=== PATIENT | female | born 1960 | race Caucasian/White ===

== ENCOUNTER → 2019-03-26 17:04 | Outpatient (CLI) | payer BC, SELFPAY ==
--- NOTE | 2019-03-26 17:06 | CT_ITS ---
STUDY: CT CHEST WITHOUT CONTRAST REASON FOR EXAM: Female, 58 years old. Follow up lung nodule. RADIATION DOSAGE (If Supplied By Facility): CTDIvol = ( 11.66 ) mGy, DLP = ( 326.23 ) mGycm TECHNIQUE: Transaxial imaging was performed without the administration of intravenous contrast material. Individualized dose optimization techniques were used for this CT. COMPARISON: 05/22/2014, 02/08/2017, and 04/20/2017. FINDINGS: Normal lung volumes. Stable hemispheric relatively flattened density across the posterior right lung base, measuring approximately 10 mm and best seen on axial image 65. At this point this is most likely a focal scar. Lungs otherwise clear. No infiltrates. No effusions. Normal heart and pericardium. There are calcifications of the coronary arteries. Normal mediastinum. Normal hilar regions. Normal unenhanced pulmonary arteries. Normal aorta arch and descending thoracic aorta. Normal osseous structures. There is no demonstrated abnormality of the visualized upper abdomen. CT/Chest without Contrast IMPRESSION: Stable small scar along the posterior surface of the right lung base. No evidence for acute chest disease. Electronically Signed: Virgil Meier MD at 20:32 EDT , Service support ,
== END ==
LOC: CT 17:05
PROVIDERS: Family Provider Family Medicine; PCP Family Medicine; Referring Provider Family Medicine; Visit Provider Family Medicine
DX: R91.1 Solitary pulmonary nodule (principal)
CPT/HCPCS: 71250